=== PATIENT | male | born 1970 | race Asian ===

== ENCOUNTER 2018-12-04 13:53 | Outpatient (CLI) | payer BC ==
--- NOTE | 2018-12-06 13:08 | Diagnostic Imaging Report ---
APPROVED REPORT CPT Code: 58501 Symptoms Comments: Leg pain BILATERAL: Common femoral artery waveform analysis is within normal limits at rest. Color flow duplex sonography reveals patency of the superficial femoral, popliteal, and tibial arteries, there is no evidence of stenosis or occlusion within these segments. Doppler tibial artery waveform analysis is within normal limits, bilaterally. ROBERTO within normal limits as follows: 1.1 (right leg) and 1.1 (left leg). There is no evidence of significant arterial occlusive disease, bilaterally.
--- NOTE | 2018-12-06 13:09 | Diagnostic Imaging Report ---
APPROVED REPORT CPT Code: 12301 BILATERAL: Imaging reveals a patent deep venous system bilaterally. There is no evidence of thrombus within the common femoral, superficial femoral, popliteal or tibial segments. The greater saphenous veins are within normal limits. Doppler indicates normal spontaneous flow within these segments.
== END 2018-12-04 15:53 | disposition home or self-care (01) ==
LOC: VAS 13:53
DX: M79.605 Pain in left leg (principal); M79.604 Pain in right leg; I73.9 Peripheral vascular disease, unspecified; R60.9 Edema, unspecified
CPT/HCPCS: 93925; 93970